=== PATIENT | female | born 1995 | race Caucasian/White ===

== ENCOUNTER 2019-01-24 19:11 | Emergency (ER) | payer BC ==
[~2019-01-24] VITALS: Ht 167.6 cm; Wt 66.4 kg
[2019-01-24 19:34] VITALS: Ht 167.6 cm; Wt 66.4 kg
[2019-01-24 21:41] VITALS: BP 123/85
== END 2019-01-24 21:47 | disposition home or self-care (01) ==
LOC: D.ER 19:11
DX: J06.9 Acute upper respiratory infection, unspecified (principal)

== ENCOUNTER 2019-06-15 22:51 | Inpatient (IN) | payer MEDICAID ==
[~2019-06-15] VITALS: Ht 167.6 cm; Wt 72.1 kg
[2019-06-16 01:51] LABS: UDS - AMPHET NEGATIVE QUAL (NEGATIVE); UDS - BARB NEGATIVE QUAL (NEGATIVE); UDS - BENZO NEGATIVE QUAL (NEGATIVE); UDS - COCAINE NEGATIVE QUAL (NEGATIVE); UDS - OPIATE NEGATIVE QUAL (NEGATIVE); UDS - PCP NEGATIVE QUAL (NEGATIVE); UDS - THC NEGATIVE QUAL (NEGATIVE)
[2019-06-16 06:07] LABS: HEMATOCRIT 34.4 % (36.0-48.0); HEMOGLOBIN 11.5 g/dL (12-16); MCH 31.6 pg (26.0-34.0); MCHC 33.4 g/dL (31.0-37.0); MCV 94.5 fL (80.0-100.0); MEAN PLATELET VOLUME 10.9 fL (7.4-10.4); RBC 3.64 10x6/uL (4.00-5.40); RDW 13.6 % (11.5-14.5); WBC 19.1 10x3/uL (4.8-10.8)
[2019-06-16] MEDS ORDERED: CELEXA10 MG PO (06:35)
[2019-06-16 06:36] VITALS: BP 114/72; Ht 167.6 cm; Wt 72.1 kg
[2019-06-16 20:20] VITALS: BP 127/73
--- NOTE | 2019-06-16 20:20 | NUR ---
ASSESSMENT PER FLOW SHEET, VS OBTAINED, IV IN LEFT HAND INTACT WITH NO REDNESS OR EDEMA INFUSING NS WITH PITOCIN AT 125 ML/HR, FF, ML, U/1, LITE BLEEDING NOTED WITH NO CLOTS, PT UP TO BR, GAIT STEADY, VOIDED WITH NO DIFFICULTY, ASSISTED PT WITH DENNIS CARE, PT INST ON AND VERBALIZES UNDERSTANDING, INFORMED PT THAT I WILL TRANSFER HER TO ANOTHER ROOM, PT VERBALIZES UNDERSTANDING, PT BACK TO BED, FOB HOLDING , FAMILY IN ROOM
--- NOTE | 2019-06-16 20:40 | NUR ---
DR VALENCIA NOTIFIED, REPORT OF PT'S TEMP, ORDERS TO NOTIFY HER IF TEMP IS 100.4 OR GREATER, ORDERS READ BACK AND VERIFIED
--- NOTE | 2019-06-16 20:43 | NUR ---
ADM RIVERA PER MD ORDERS, SEE EMAR
--- NOTE | 2019-06-16 21:17 | NUR ---
PT TRANSFERRED VIA AMB, GAIT STEADY, WITH ALL BELONGINGS TO ROOM 1257, PT ORIENTED TO ROOM, BD IN LOW POSITION, SIDE RAILS X 2, CALL LIGHT IN REACH
--- NOTE | 2019-06-16 21:30 | NUR ---
OBTAINED TEMP, PT DENIES ANY NEEDS AT THIS TIME
--- NOTE | 2019-06-16 22:30 | NUR ---
PT TALKING ON CELL PHONE, DENIES NEEDS OR PAIN AT THIS TIME, BED IN LOW POSITION, SIDE RAILS X 2, CALL LIGHT IN REACH
--- NOTE | 2019-06-17 | NUR ---
PT VISITING WITH FAMILY, FOB HOLDING INFANT, PT PROVIDED ICE PACK FOR PERINIUM, PT DENIES NEEDS OR PAIN AT THIS TIME
--- NOTE | 2019-06-17 02:28 | NUR ---
PT RESTING WITH EYES CLOSED, RESP QUIET, NO DISTRESS NOTED, LEFT UNDISTURBED AT THIS TIME, PT'S SISTER HOLDING , FOB AT BEDSIDE, BED IN LOW POSITION, SIDE RAILS X 2, CALL LIGHT IN REACH
--- NOTE | 2019-06-17 03:18 | NUR ---
IV BEEPING, NS WITH PITOCIN FINISHED INFUSING, IV CONVERTED TO SALINE LOCK, PT DENIES NEEDS OR PAIN AT THIS TIME
[2019-06-17 05:09] LABS: RAPID PLASMA REAGIN Non Reactive (Non Reactive)
--- NOTE | 2019-06-17 05:39 | NUR ---
PT RESTING WITH EYES CLOSED, RESP QUIET, NO DISTRESS NOTED, LEFT UNDISTURBED AT THIS TIME, FOB ASLEEP ON COUCH
[2019-06-17 06:53] LABS: BASOPHILS 0.2 % (0-2); EOSINOPHILS 0.6 % (0-7); HEMATOCRIT 28.2 % (36.0-48.0); HEMOGLOBIN 9.5 g/dL (12-16); IMMATURE GRANULOCYTES 0.6 % (0-5); LYMPHOCYTES 16.9 % (15-50); MCH 31.4 pg (26.0-34.0); MCHC 33.7 g/dL (31.0-37.0); MCV 93.1 fL (80.0-100.0); MEAN PLATELET VOLUME 9.7 fL (7.4-10.4); NEUTROPHILS 74.7 % (40-80); PLATELET COUNT 292 10x3/uL (130-400); RBC 3.03 10x6/uL (4.00-5.40); RDW 13.6 % (11.5-14.5); WBC 19.3 10x3/uL (4.8-10.8)
[2019-06-17 08:45] VITALS: BP 107/68
--- NOTE | 2019-06-17 08:45 | NUR ---
SHIFT ASSESSMENT COMPLETED. DENIES NEEDING ANYTHING OTHER THAN ASKED IF SALINE LOCK COULD BE TAKEN OUT. INFANT IN ARMS OF VISITOR. FRESH WATER AND SNACK PACK GIVEN. TO CALL IF ANYTHING IS NEEDED. DISCUSSED DENNIS-CARE. SAYS THAT DERMOPLAST HAS HELPED. /10 PERINEAL PAIN SHE SAYS IS LIVABLE.
--- NOTE | 2019-06-17 09:30 | NUR ---
RESTING ON LEFT SIDE. AROUSED EASILY. IN NURSERY. NO REQUESTS AT PRESENT. SIDERAILS UP X 2, CALL LIGHT IN REACH. TO CALL IF ANYTHING IS NEEDED. NO CURRENT VISITORS.
--- NOTE | 2019-06-17 10:50 | NUR ---
SIGNIFICANT OTHER TO DESK, REQUEST SOAP AND LOTION, PROVIDED PER REQUEST. DENIES ADDITIONAL NEEDS.
--- NOTE | 2019-06-17 13:10 | NUR ---
REGULAR DIET GIVEN. SITTING ON COUCH WITH VISITOR. COMPLETE LINEN CHANGE WAS DONE. PT SHOWERED EARLIER. WAITING ON CBC RESULTS THAT WERE ORDERED BY DR VALENCIA WHO VISITED EARLIER.
--- NOTE | 2019-06-17 13:43 | NUR ---
O NEGATIVE. A NEGATIVE. GBS + RUBELLA IMMUNE, TDAP 04/20/2019 AND FLU VACCINE RECIEVED 02/08/2019 IN CLINIC PER [facility] RECORDS. NON SMOKER, BOTTLE FEEDING.
--- NOTE | 2019-06-17 14:58 | NUR ---
AMBULATING IN ROOM TALKING TO VISITORS. WAITING ON TO RETURN TO ROOM. DENIES NEEDING ANYTHING. TO CALL IF ANYTHING IS NEEDED. VERBALIZED UNDERSTANDING. HAS TUCKS IN ROOM FOR PRN USE ON PERINEAL AREA.
--- NOTE | 2019-06-17 17:06 | NUR ---
SITTING UP IN BED HOLDING INFANT. ATE DINNER. DENIES PAIN OR NEEDING ANYTHING AT THIS TIME. TO CALL IF ANYTHING IS NEEDED. CALL LIGHT IN REACH. UP AD [place].
--- NOTE | 2019-06-17 19:28 | NUR ---
PM ROUNDS MADE, INFANT IN OPEN CRIB CART, JAZMÍN NURSE IN ROOM AT THIS TIME, INFORMED PT THAT I WILL BE BACK SHORTLY TO DO ASSESSMENT, PT VERBALIZES UNDERSTANDING, DENIES NEEDS OR PAIN AT THIS TIME
--- NOTE | 2019-06-17 20:20 | NUR ---
DR VALENCIA CALLS THE UNIT WANTING UPDATE REPORT. LAB RESULTS GIVEN. REQUEST PT TO REMAIN INPATIENT UNTIL AM FOR FURTHER OBSERVATION.
[2019-06-17 20:37] VITALS: BP 123/84
--- NOTE | 2019-06-17 20:37 | NUR ---
ASSESSMENT PER FLOW SHEET, VS OBTAINED, FF, ML, U/1, PT REPORTS LITE BLEEDING WITH NO CLOTS, REPORTS FLATUS, SMALL BM THIS AFTERNOON, AND VOIDING WITH NO DIFFICULTY, PT DENIES PAIN, REQUESTED AND SERVED FRESH H20, BED IN LOW POSITION, SIDE RAILS X 2, CALL LIGHT IN REACH
--- NOTE | 2019-06-17 21:47 | NUR ---
PT OUT OF ROOM AT THIS TIME
--- NOTE | 2019-06-17 22:00 | NUR ---
PT BACK IN ROOM, REPORTS TAKING A SHORT WALK, PT GETTING READY TO GET INTO THE SHOWER, PT INST TO USE CALL LIGHT IN BR FOR ANY ASSISTANCE, PT VERBALIZES UNDERSTANDING, DENIES NEEDS OR PAIN AT THIS TIME
--- NOTE | 2019-06-18 00:47 | NUR ---
PT [employer] LIGHT, C/O CRAMP IN UPPER THIGH, ADM MOTRIN PER MD ORDERS, SEE EMAR, PT DENIES FURTHER NEEDS
--- NOTE | 2019-06-18 01:38 | NUR ---
PT AWAKE, WATCHING TV ON CELL PHONE, DENIES NEEDS OR PAIN AT THIS TIME, STATES "THAT MOTRIN DIDN'T TAKE LONG TO KICK IN, IT'S FEELING MUCH BETTER", INFANT IN OPEN CRIB CART AT BEDSIDE
--- NOTE | 2019-06-18 03:10 | NUR ---
PT APPLIANCES SAMPLE MAKER LIGHT, PT REPORTS PASSING A SMALL BLOOD CLOT, JUST WANTED TO LET ME KNOW, WENT OVER PPH WITH PT, PT VERBALIZES UNDERSTANDING, DENIES FURTHER NEEDS, IN OPEN CRIB CART AT BEDSIDE
--- NOTE | 2019-06-18 05:00 | NUR ---
PT RESTING WITH EYES CLOSED, RESP QUIET, NO DISTRESS NOTED, LEFT UNDISTURBED AT THIS TIME, IN OPEN CRIB CART AT BEDSIDE
--- NOTE | 2019-06-18 07:00 | NUR ---
SHIFT REPORT TO RYLEE MATHEWS RN
[2019-06-18 09:10] VITALS: BP 111/76
--- NOTE | 2019-06-18 09:10 | NUR ---
SHIFT ASSESSMENT COMPLETED. NO REQUESTS AT PRESENT. ANTICIPATE DC HOME.
--- NOTE | 2019-06-18 10:02 | NUR ---
DR VALENCIA HERE. V.O. FOR CBC NOW.
[2019-06-18 11:03] LABS: BASOPHILS 0.2 % (0-2); EOSINOPHILS 1.2 % (0-7); HEMATOCRIT 29.5 % (36.0-48.0); HEMOGLOBIN 9.8 g/dL (12-16); IMMATURE GRANULOCYTES 0.9 % (0-5); LYMPHOCYTES 14.2 % (15-50); MCH 31.4 pg (26.0-34.0); MCHC 33.2 g/dL (31.0-37.0); MCV 94.6 fL (80.0-100.0); MEAN PLATELET VOLUME 9.3 fL (7.4-10.4); MONOCYTES 5.8 % (2-11); NEUTROPHILS 77.7 % (40-80); PLATELET COUNT 337 10x3/uL (130-400); RBC 3.12 10x6/uL (4.00-5.40); RDW 13.9 % (11.5-14.5); WBC 18.6 10x3/uL (4.8-10.8)
--- NOTE | 2019-06-18 11:38 | NUR ---
DR VALENCIA NOTIFIED OF CBC- WBC RESULTS. ORDERS RECEIVED TO DC HOME WITH TEMP AND ABD PAIN PRECAUTIONS. PT CURRENTLY IN SHOWER. VISITORS AND INFANT IN ROOM.
--- NOTE | 2019-06-18 14:15 | NUR ---
SITTING UP IN BED TALKING TO VISITOR. DENIES NEEDING ANYTHING. READY TO GO HOME. WAITING ON DC. TO CALL IF ANYTHING IS NEEDED. VERBALIZED UNDERSTANDING.
--- NOTE | 2019-06-18 19:37 | NUR ---
JAZMÍN NURSE IN ROOM GOING OVER D/C PAPERWORK WITH PT, INFORMED PT THAT I WILL BE BACK SHORTLY TO DO HER DISCHARGE, PT VERBALIZES UNDERSTANDING, DENIES NEEDS OR PAIN AT THIS TIME
[2019-06-18 20:31] VITALS: BP 116/76
--- NOTE | 2019-06-18 20:31 | NUR ---
ASSESSMENT PER FLOW SHEET, VS OBTAINED, PT REPORTS FLATUS, NO BM, VOIDING WITH NO DIFFICULTY, AND SCANT VAG BLEEDING WITH NO CLOTS, INFORMED PT THAT I WILL GO OVER DISCHARGE PAPERWORK AND THEN DISCHARGE HER, PT VERBALIZES UNDERSTANDING, FEMALE HOLDING INFANT, FOB AT BEDSIDE
--- NOTE | 2019-06-18 20:40 | NUR ---
WENT OVER DISCHARGE PAPERWORK WITH PT, PT VERBALIZE UNDERSTANDING, ALL QUESTIONS ANSWERED, VERBALIZES UNDERSTANDING TO QUESTIONS, INFORMED PT THAT I WILL TAKE HER OUT BY WHEELCHAIR
--- NOTE | 2019-06-18 20:48 | NUR ---
PT DISCHARGED VIA HOME WITH FOB, INFANT IN CAR SEAT, AND FEMALE FAMILY MEMBER, PT HAS ALL DISCHARGE PAPERWORK AND BELONGINGS
== END 2019-06-18 20:48 | disposition home or self-care (01) | DRG 807 ==
LOC: D.LD 22:51 → D.LDO 22:51 → D.LD 06-16 05:00 → D.LDO 06-16 05:00 → D.LD 06-16 21:20
PROVIDERS: Student in an Organized Health Care Education/Training Program; ADMIT Obstetrics & Gynecology; ATTEND Obstetrics & Gynecology
PROC: 10E0XZZ Delivery of Products of Conception, External Approach (ICD-10-PCS; principal; 2019-06-16)
PROC: 0KQM0ZZ Repair Perineum Muscle, Open Approach (ICD-10-PCS; 2019-06-16)
PROC: 10907ZC Drainage of Amniotic Fluid, Therapeutic from Products of Conception, Via Natural or Artificial Opening (ICD-10-PCS; 2019-06-16)
DX: O99.824 Streptococcus B carrier state complicating childbirth (principal); Z37.0 Single live birth; Z3A.39 39 weeks gestation of pregnancy; O99.334 Smoking (tobacco) complicating childbirth; F17.200 Nicotine dependence, unspecified, uncomplicated; O70.1 Second degree perineal laceration during delivery; O69.81X0 Labor and delivery complicated by cord around neck, without compression, not applicable or unspecified